=== PATIENT | male | born 1975 | race Caucasian/White ===

== ENCOUNTER 2017-11-01 17:45 | Emergency (ER) | payer OTHER ==
[~2017-11-01] VITALS: Ht 180.3 cm; Wt 67.0 kg
[~2017-11-01 17:45] MED LIST: AMPH20CA3 PO; CLON1TAB4 PO; DPKSR/500 PO; FAMO1TAB47 PO; HYDR50CA2 PO; LEVO100T7 PO; [UNRECOGNIZED DRUG - CODE] PO
[2017-11-01 17:51] VITALS: TEMP 36.9; Ht 180.3 cm; Wt 67.0 kg
[2017-11-01] MEDS ORDERED: HYDROCODONE/ACETAMIN 5/325MG TAB PO STA (18:00)
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
[2017-11-01] MEDS ORDERED: ESOM1CAP34 PO (18:34)
[2017-11-01] MEDS ORDERED: GDN80 PO (18:34)
[2017-11-01] MEDS ORDERED: IBUP-1050 PO ×2 (18:34)
[2017-11-01] MEDS ORDERED: HYDR-5688 PO (18:36)
--- NOTE | 2017-11-01 18:39 | EMERGENCY ROOM VISIT NOTE ---
ED Visit Note First contact with patient: 17:50 This Patient was discussed with the physician assistant banquet manager, Daria Carrera PA-C. The pertinent historical and physical exam findings were confirmed. I agree with the studies ordered and with the interpretations of these studies. I agree with the disposition and care plan.
[2017-11-01 18:45] VITALS: BP 122/64; PULSE 80; O2SAT 99
== END 2017-11-01 18:55 | disposition home or self-care (01) ==
LOC: C.EDB 17:51 → C.EDD 18:55
DX: S62.336A Displaced fracture of neck of fifth metacarpal bone, right hand, initial encounter for closed fracture (principal); Y04.0XXA Assault by unarmed brawl or fight, initial encounter; E07.9 Disorder of thyroid, unspecified